=== PATIENT | female | born 1985 | race American Indian/Alaskan Native ===

== ENCOUNTER 2017-03-12 15:40 | Emergency (ER) | payer OTHER ==
[2017-03-12] MEDS ORDERED: TORADOL IM ONE (19:39)
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
[2017-03-12 22:49] VITALS: BP 108/74
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
== END 2017-03-12 22:49 | disposition home or self-care (01) ==
LOC: ED 15:40
DX: S46.812A Strain of other muscles, fascia and tendons at shoulder and upper arm level, left arm, initial encounter (principal); V49.49XA Driver injured in collision with other motor vehicles in traffic accident, initial encounter; Y93.89 Activity, other specified; Y99.8 Other external cause status; Y92.89 Other specified places as the place of occurrence of the external cause
CPT/HCPCS: 73030; 81025; 96372; 99283; J1885